=== PATIENT | male | born 1990 | race Caucasian/White ===

== ENCOUNTER 2017-10-25 16:41 | Emergency (ER) | payer MEDICAID, OTHER ==
[~2017-10-25] VITALS: Ht 175.3 cm; Wt 71.3 kg
[~2017-10-25 16:41] MED LIST: CLIN-79 PO; CYCL-1 PO; HYDR-569 PO; IBUP-1986 PO; KETO15CR2 TP; NO HOME MEDS
[2017-10-25 17:02] VITALS: BP 137/78
[2017-10-25] MEDS ORDERED: CYCL-1 PO (17:51)
[2017-10-25] MEDS ORDERED: IBUP-1984 PO (17:51)
== END 2017-10-25 18:12 | disposition home or self-care (01) ==
LOC: ER 16:42
DX: M43.6 Torticollis (principal); Z98.890 Other specified postprocedural states; Z79.899 Other long term (current) drug therapy
CPT/HCPCS: 99283

== ENCOUNTER 2020-07-26 07:57 | Emergency (ER) | payer MEDICAID ==
[~2020-07-26] VITALS: Ht 175.3 cm; Wt 60.0 kg
[~2020-07-26 07:57] MED LIST changes: -CLIN-79 PO; +CLIN150C8 PO; +HYDR-4383 PO; -HYDR-569 PO
[2020-07-26 08:00] VITALS: BP 122/82
[2020-07-26] MEDS ORDERED: HYDROcodone/acetaminophen 10/325mg tab PO ONE (08:35)
== END 2020-07-26 09:10 | disposition home or self-care (01) ==
LOC: ER 07:57
DX: G89.18 Other acute postprocedural pain (principal); M25.522 Pain in left elbow; Z98.890 Other specified postprocedural states; Z72.89 Other problems related to lifestyle; Z79.2 Long term (current) use of antibiotics; Z79.899 Other long term (current) drug therapy
CPT/HCPCS: 73080; 99283

== ENCOUNTER 2021-08-25 04:54 | Emergency (ER) | payer MEDICAID ==
[~2021-08-25] VITALS: Ht 172.7 cm; Wt 81.8 kg
[2021-08-25 04:56] VITALS: BP 132/90
[2021-08-25] MEDS ORDERED: HYDR-3965 PO ×2 (05:29→12:08)
[2021-08-25] MEDS ORDERED: AMOX-117 PO ×2 (05:29→12:08)
[2021-08-25] MEDS ORDERED: amox tr/potassium clavulanate 875/125mg TAB PO ONE (05:30)
[2021-08-25] MEDS ORDERED: ketorolac trometh inj. 60 MG/2 ML VIAL IM ONE (05:30)
--- NOTE | 2021-08-25 05:46 | NUR ---
patient presents to the ER with complaints of left lower molar pain. he stats that he has not taking any ABT and last OTC pain medication was yesterday at 8 pm.
[2021-08-25] MEDS ORDERED: LIDOcaine 1% W/epiNEPHrine 1:200,000 10ml vial IJ ONE (07:00)
[2021-08-25] MEDS ORDERED: LIDOcaine 1% w/EPI 1:100,000 30ml vial (MDV) ONE (07:03)
== END 2021-08-25 05:51 | disposition home or self-care (01) ==
LOC: ER 04:55
DX: K02.9 Dental caries, unspecified (principal); F32.9 Major depressive disorder, single episode, unspecified; Z79.899 Other long term (current) drug therapy
CPT/HCPCS: 64400; 96372; 99284; J1885; J3490

== ENCOUNTER 2022-11-08 22:31 | Emergency (ER) | payer MEDICAID ==
[~2022-11-08] VITALS: Ht 172.7 cm; Wt 79.5 kg
[~2022-11-08 22:31] MED LIST changes: +AMOX-117 PO; +HYDR-3965 PO
[2022-11-08 22:37] VITALS: BP 138/96
[2022-11-08] MEDS ORDERED: mupirocin 2% ointment 22GM TP STA (23:29)
[2022-11-08] MEDS ORDERED: LIDO28.35 TOP (23:33)
== END 2022-11-08 23:49 | disposition home or self-care (01) ==
LOC: ER 22:32
DX: S39.94XA Unspecified injury of external genitals, initial encounter (principal); F17.200 Nicotine dependence, unspecified, uncomplicated; F12.90 Cannabis use, unspecified, uncomplicated; X58.XXXA Exposure to other specified factors, initial encounter; Y93.89 Activity, other specified; Y92.89 Other specified places as the place of occurrence of the external cause; Y99.8 Other external cause status
CPT/HCPCS: 99282

== ENCOUNTER 2022-11-10 11:11 | Emergency (ER) | payer MEDICAID ==
[~2022-11-10] VITALS: Ht 172.7 cm; Wt 79.5 kg
[~2022-11-10 11:11] MED LIST changes: +LIDO28.35 TOP
[2022-11-10 11:22] VITALS: BP 117/87
== END 2022-11-10 12:06 | disposition left against medical advice (07) ==
LOC: ER 11:11
DX: Z00.8 Encounter for other general examination (principal); Z53.21 Procedure and treatment not carried out due to patient leaving prior to being seen by health care provider
CPT/HCPCS: 99281

== ENCOUNTER 2023-09-29 08:52 | Emergency (ER) | payer MEDICAID ==
[~2023-09-29] VITALS: Ht 172.7 cm; Wt 77.3 kg
[~2023-09-29 08:52] MED LIST changes: +CLIN-214 PO; -CLIN150C8 PO; +TRAM50TA2 PO
[2023-09-29 08:59] VITALS: BP 109/66; PULSE 85; RESP 16; TEMP 97.3; O2SAT 95
== END 2023-09-29 10:20 | disposition home or self-care (01) ==
LOC: ER 08:53
DX: S93.402A Sprain of unspecified ligament of left ankle, initial encounter (principal); M25.562 Pain in left knee; F12.90 Cannabis use, unspecified, uncomplicated; Z98.890 Other specified postprocedural states; Z79.2 Long term (current) use of antibiotics; Z79.899 Other long term (current) drug therapy; W22.8XXA Striking against or struck by other objects, initial encounter; Y93.89 Activity, other specified; Y92.89 Other specified places as the place of occurrence of the external cause; Y99.8 Other external cause status
CPT/HCPCS: 73610; 99283

== ENCOUNTER 2023-12-10 16:58 | Emergency (ER) | payer MEDICAID ==
[~2023-12-10] VITALS: Ht 172.7 cm; Wt 83.0 kg
[2023-12-10 17:04] VITALS: TEMP 98.4
[2023-12-10 17:42] LABS: BASOPHILS % (AUTO) 0.5 % (0-1); EOSINOPHILS # (AUTO) 0.1 X10'3 (0-0.9); EOSINOPHILS % (AUTO) 0.9 % (0-6); HEMOGLOBIN 13.4 g/dl (14.0-17.9); LYMPHOCYTES # (AUTO) 1.2 X10'3 (1.1-4.8); LYMPHOCYTES % (AUTO) 13.4 % (21-51); MEAN CORPUSCULAR HGB CONC 33.4 g/dL (33.0-36.5); MEAN PLATELET VOLUME 7.2 FL (7.4-10.4); MONOCYTES # (AUTO) 0.6 X10'3 (0-0.9); MONOCYTES % (AUTO) 6.4 % (2-12); NEUTROPHILS % (AUTO) 78.8 % (42-75); PLATELET COUNT 402 X10'3 (140-440); RED BLOOD COUNT 4.76 X10'6 (4.70-6.10); RED CELL DISTRIBUTION WIDTH 14.1 % (11.5-14.5); WHITE BLOOD COUNT 8.9 X10'3 (4.5-11.0)
[2023-12-10 17:52] LABS: ALBUMIN 3.7 G/DL (3.4-5.0); ANION GAP 7 (8-16); BLOOD UREA NITROGEN 13 MG/DL (7-18); BUN/CREATININE RATIO 13.3 (10.0-20.0); CALCIUM 9.4 MG/DL (8.5-10.1); CHLORIDE 101 MMOL/L (99-107); CREATININE 0.98 MG/DL (0.60-1.10); GLUCOSE 95 MG/DL (70-104); POTASSIUM 4.3 MMOL/L (3.5-5.1); SODIUM 139 MMOL/L (135-145); TOTAL CARBON DIOXIDE 30.8 MMOL/L (24-32); eCRCL 103 ML/MIN; eGFR 88 ML/MIN
[2023-12-10 18:14] VITALS: BP 128/86; PULSE 100; RESP 18; O2SAT 95
[2023-12-10] MEDS ORDERED: AZIT500T9 PO (18:52)
== END 2023-12-10 19:02 | disposition home or self-care (01) ==
LOC: ER 16:59
DX: J18.9 Pneumonia, unspecified organism (principal); F12.90 Cannabis use, unspecified, uncomplicated; Z79.2 Long term (current) use of antibiotics; Z79.899 Other long term (current) drug therapy
CPT/HCPCS: 36415; 71045; 80048; 85025; 99284

== ENCOUNTER 2024-12-27 17:45 | Emergency (ER) | payer MEDICAID ==
[~2024-12-27] VITALS: Ht 175.3 cm; Wt 84.1 kg
[~2024-12-27 17:45] MED LIST changes: +AZIT500T9 PO
--- NOTE | 2024-12-27 18:02 | Physician Documentation ---
History of Present Illness ~ Chief Complaint: Groin Pain Stated Complaint: ABD PAIN Time Seen by MD: 18:23 Primary Medical Doctor: [facility] Patient is seen today with complaints of left-sided groin pain. Patient states this pain came on acutely today on very suddenly. Patient denies any trauma to the area. Patient denies any abdominal pain or nausea, vomiting, diarrhea or chest pain or shortness of breath in his no other concern or complaint at this time. Patient denies any dysuria or urinary urgency or frequency. Patient's main concern today was for possibly having a hernia. Medication Reconciliation Allergies: Coded Allergies: No Known Allergies (Unverified , 12/27/24) Scheduled Amox Tr/Potassium Clavulanate (Augmentin 875-125 Tablet), 1 TAB PO Q12H Azithromycin (Azithromycin), 1 TAB PO DAILY Clindamycin HCl (Clindamycin HCl CAPSULE), 3 CAP PO TID Hydrocodone/Acetaminophen (Orwell 5-325 Tablet), 1 TABLET PO TID Ibuprofen (Ibuprofen), 1 TAB PO Q8H Ketoconazole (Ketoconazole), 1 APPLIC TP DAILY Lidocaine HCl (Lidocaine HCl), 1 APPLIC TOP Q12H Scheduled PRN Cyclobenzaprine* (Cyclobenzaprine*), 1 TABLET PO Q8H PRN for muscle spasms Cyclobenzaprine* (Cyclobenzaprine*), 1 TABLET PO Q8H PRN for muscle spasms Hydrocodone Bit/Acetaminophen 5/325 MG (Orwell 5/325 MG), 1 TAB PO Q6H PRN for pain Hydrocodone/Acetaminophen (Orwell 5-325 Tablet), 1 TAB PO Q8HPRN PRN for pain Tramadol HCl (Tramadol HCl), 1-2 TAB PO Q12H PRN PRN for pain Miscellaneous Medications Home Med List (No Home Medications), (Reported) Past Medical History Past Medical History: No Pertinent History, Depression Past Surgical History: orthopedic surgeries Alcohol Use: Rarely Drug Use: marijuana Lives with: Spouse Occupation: employed Review of Systems Constitutional: Denies: chills, fever, weakness Eyes: Denies: pain, blurred vision ENT: Denies: ear pain, nose pain, throat pain, mouth pain Respiratory: Denies: cough, shortness of breath Cardiovascular: Denies: chest pain, palpitations Gastrointestinal: Denies: abdominal pain, nausea, vomiting Genitourinary: Denies: burning, dysuria Male Genitalia: Denies: penile discharge, testicular pain Neurological: Denies: headache, dizziness Musculoskeletal: Denies: pain, swelling Integumentary: Denies: rash, lesions Allergic/Immunologic: Denies: hives, itching Hematologic/Lymphatic: Denies: no symptoms reported Psychiatric: Denies: depression, anxiety Physical Exam Vital Signs: Temperature: 97.7, Source: Temporal, Heart Rate: 82, Respiratory Rate: 18, BP: 122/87, Pulse Oximetry: 98, Weight: 84.090 Oxygen Flow Rate: 0 Physical Exam General: Awake and Alert, no acute distress. HEENT: Conjunctiva pink, Sclera clear, Mucus Membranes moist. Neck: Supple without masses and tenderness. Resp: Unlabored. Lungs clear to auscultation bilaterally. Heart: Regular Rate and rhythm, normal S1 and S2 without murmur, rub or gallop. Abdomen: Soft and non tender no organomegaly Genitourinary: Patient on exam has no significant tenderness to palpation of the testicles bilaterally however patient does have significant tenderness to palpation along the spermatic cord of the left testicle as well as up into the inguinal canal. I do not appreciate any inguinal hernia on exam. I do not appreciate any swelling or induration or erythema or warmth or sign of infection. Extremities: No cyanosis,clubbing or edema. Skin: Warm and Dry. Progress Results/Orders Results/Orders Orders - JAS RODRIGEZ PAC Us Testic/W/Duplex (12/27/24 18:01) Urinalysis, Cult If Indicated (12/27/24 20:45) Completed Orders - JAS RODRIGEZ PAC Us Testic/W/Duplex (12/27/24 18:01) Ketorolac Trometh 30mg/Ml Vial (Toradol (12/27/24 19:26) Acetaminophen 325mg Tablet (Tylenol Tabl (12/27/24 19:26) Oxycodone/Acetaminophen Tablet (Percocet (12/27/24 19:26) Ondansetron Disint. Tablet (Zofran Odt T (12/27/24 19:26) Medications Received in ER Medications (Trade) Dose Ordered Sig/Victoriano Route PRN Reason Start Time Stop Time Status Last Admin Dose Admin (Toradol inj. 30mg/ml) 30 mg ONCE STAT IM 12/27/24 19:26 12/27/24 19:30 DC 12/27/24 19:41 30 MG (Tylenol tablet) 975 mg ONCE STAT PO 12/27/24 19:26 12/27/24 19:30 DC 12/27/24 19:42 975 MG (Percocet 10-325 mg tab) 1 tab ONCE STAT PO 12/27/24 19:26 12/27/24 19:35 DC 12/27/24 19:42 1 TAB (Zofran ODT tablet) 4 mg ONCE STAT PO 12/27/24 19:26 12/27/24 19:30 DC 12/27/24 19:42 4 MG Vital Signs 12/27/24 12/27/24 12/27/24 12/27/24 17:54 19:22 19:23 19:41 Temp 97.7 Pulse 82 76 Resp 18 16 16 18 B/P (MAP) 122/87 118/84 (95) Pulse Ox 98 100 O2 Flow Rate 0 12/27/24 19:42 Resp 18 EKG/XRAY/CT/US/VASC/MRI Ultrasound : Impression ULTRASOUND Patient: ESTELLA WYNNE Medical Record: [id number] [facility] : 1990, Age: 34 Sex: Male Location: ER Patient Status: REG ER Service Date/Time: 12/27/241800 Ordering Physician: JAS RODRIGEZ PAC Exam: US TESTIC/W/DUPLEX EXAM: US US TESTIC/W/DUPLEX HISTORY: left testicle pain COMPARISON: None TECHNIQUE: Grayscale and color Doppler imaging of the scrotum with spectral analysis performed. FINDINGS: RIGHT TESTICLE: Normal in size and echotexture, measuring 3.98 cm in long axis. Doppler interrogation is unremarkable. RIGHT EPIDIDYMIS: Unremarkable. LEFT TESTICLE: Normal in size and echotexture, measuring 4.13 cm in long axis. Doppler interrogation is unremarkable. LEFT EPIDIDYMIS: Unremarkable. OTHER: Bilateral hydrocele. IMPRESSION: 1. No definite sonographic evidence of testicular torsion or epididymoorchitis. 2. Bilateral hydroceles. Electronically Signed by:BRITTNEY GONZALES MD Date & Time: 12/27/241924 Dictated by: BRITTNEY GONZALES MD Dictation date and time: 12/27/241924 Primary Care Provider: NO PRIMARY CARE PROVIDER cc: JAS RODRIGEZ PAC ~ Medical Decision Making Findings Patient is seen today with complaints of left-sided groin pain. Patient states this pain came on acutely today on very suddenly. Patient denies any trauma to the area. Patient denies any abdominal pain or nausea, vomiting, diarrhea or chest pain or shortness of breath in his no other concern or complaint at this time. Patient denies any dysuria or urinary urgency or frequency. Patient's main concern today was for possibly having a hernia. Patient did have ultrasound of the testicles and inguinal canals that showed no sign of hernia and no sign of testicular torsion with good blood blood flow to both testicles. Patient did have hydrocele bilaterally. Patient did respond well to Toradol 30 mg IM as well as Percocet 10 mg/325 mg by mouth and Tylenol. Patient will be given prescription for Orwell 10/325 mg to be taken as prescribed as well as meloxicam 15 mg one tab once a day with food and Tylenol 1000 mg three to 4 times a day as needed. Patient will follow up with primary care for referral to Urology. Patient will return to ED with any worsening, concerning or changing symptoms. Departure Disposition: HOME / SELF CARE / HOMELESS Impression: Primary Impression: Hydrocele in adult Additional Impression: Groin pain Qualified Codes: R10.32 - Left lower quadrant pain Condition: Improved Discharge Instructions: Hydrocele, Adult Referrals: NO PRIMARY CARE PROVIDER (PCP) Prescriptions Meloxicam (Meloxicam) 15 Mg Tablet 1 TAB PO DAILY for 30 Days, #30 TAB 0 Refills Prov: JAS RODRIGEZ PAC 12/27/24 Hydrocodone Bit/Acetaminophen (Hydrocodone-Apap 10-325 Tablet) 10mg/325mg Tablet 1 TAB PO TID PRN PRN for pain for 5 Days, #15 TAB Prov: JAS RODRIGEZ PAC 12/27/24 Signature Scribe Signature: No scribe Attestation: No scribe JAS RODRIGEZ PAC Dec 27, 2024 18:02
--- NOTE | 2024-12-27 19:28 | RADIOLOGY REPORT ---
EXAM: US US TESTIC/W/DUPLEX HISTORY: left testicle pain COMPARISON: None TECHNIQUE: Grayscale and color Doppler imaging of the scrotum with spectral analysis performed. FINDINGS: RIGHT TESTICLE: Normal in size and echotexture, measuring 3.98 cm in long axis. Doppler interrogati on is unremarkable. RIGHT EPIDIDYMIS: Unremarkable. LEFT TESTICLE: Normal in size and echotexture, measuring 4.13 cm in long axis. Doppler interrogatio n is unremarkable. LEFT EPIDIDYMIS: Unremarkable. OTHER: Bilateral hydrocele. IMPRESSION: 1. No definite sonographic evidence of testicular torsion or epididymoorchitis. 2. Bilateral hydroceles.
[2024-12-27] MEDS: ketorolac trometh 30MG/ML vial 30 MG/ML VIAL IM STA (19:41)
[2024-12-27] MEDS: ondansetron 4mg rapidly disintigrating tab PO STA (19:42)
[2024-12-27] MEDS ORDERED: MELO-102 PO (20:57)
[2024-12-27] MEDS ORDERED: HYDR-3973 PO (20:57)
[2024-12-27 21:05] VITALS: BP 120/80; PULSE 78; RESP 20; TEMP 98.6; O2SAT 99
== END 2024-12-27 21:07 | disposition home or self-care (01) ==
LOC: ER 17:46
DX: N43.3 Hydrocele, unspecified (principal)
CPT/HCPCS: 76870; 93976; 96372; 99285; J1885; 99284